=== PATIENT | female | born 1995 | race African-American/Black ===

== ENCOUNTER 2024-04-21 05:30 | Inpatient (IN) | payer BC, OTHER ==
[2024-04-21] MEDS ORDERED: Acetaminophen 500 MG TAB PO PRN (06:28)
[2024-04-21] MEDS ORDERED: Methylergonovine 0.2 MG/ML VIAL IM PRN (06:28)
[2024-04-21] MEDS ORDERED: Tranexamic Acid 1,000 MG/10 ML VIAL IVP PRN (06:28)
[2024-04-21] MEDS ORDERED: HYDROcodone/Acetaminophen 5/325 mg Tablet PO PRN ×2 (06:28)
[2024-04-21] MEDS ORDERED: Carboprost 250 MCG/ML AMP IM PRN (06:28)
[2024-04-21] MEDS ORDERED: Lidocaine 1% (PF) 30 ML VIAL SC PRN (06:28)
[2024-04-21] MEDS ORDERED: fentaNYL 50 mcg/mL 1 mL Vial SLOW IVP PRN (06:28)
[2024-04-21] MEDS ORDERED: Promethazine HCl 25 MG/ML VIAL IM PRN ×2 (06:28→09:30)
[2024-04-21] MEDS ORDERED: hydrALAZINE 20 MG/ML VIAL SLOW IVP PRN ×2 (06:28→16:37)
[2024-04-21] MEDS ORDERED: Diphenoxylate HCl/Atropine Tablet PO PRN ×2 (06:28)
[2024-04-21 06:30] VITALS: BMI 32.5
[2024-04-21 06:43] LABS: Hematocrit 33.9 % (34.9-44.5); Hemoglobin 11.3 g/dL (12.0-15.5); Mean Corpuscular HGB CONC 33.3 g/dL (32.0-36.0); Mean Corpuscular Hemoglobin 29.2 pg (27.0-33.0); Mean Corpuscular Volume 87.6 fL (81.6-98.3); Mean Platelet Volume 11.6 fL (7.4-10.4); Platelet Count 174 10x3/uL (150-450); RBC Distribution Width 15.9 % (11.5-14.5); Red Blood Cell (RBC) Count 3.87 10x6/uL (3.90-5.03); White Blood Cell (WBC) Count 9.7 10x3/uL (3.5-10.5)
[2024-04-21] MEDS: Penicillin G Potassium 5 MILL.UNITS in Sodium Chloride 0.9% 100 ML IVPB SCH (07:08)
[2024-04-21] MEDS: Oxytocin 30 units/NS 500 ML 500 ML IV SCH ×2 (07:08→16:39)
[2024-04-21] MEDS: Lactated Ringer's 1,000 ML IV SCH (07:09)
[2024-04-21 07:15] LABS: Syphilis Antibody Nonreactive (Nonreactive); Syphilis Antibody Index 0.04 S/CO (<1.00 Non-Reactive)
[2024-04-21 07:16] LABS: HBsAg Index 0.15 S/CO (0-0.99); Hep B Surf Ag - L&D Non-Reactive S/CO (NonReactive)
[2024-04-21] MEDS ORDERED: Bupivacaine 0.25% HCL 30 ML VIAL ONE (08:00)
[2024-04-21] MEDS ORDERED: Bupivacaine HCl 0.5%/Epinephrine 1:200,000/PF 30 ml Vial ONE (08:00)
[2024-04-21] MEDS: fentaNYL/Ropivacaine Epidural 100 ML ONE (08:23)
[2024-04-21] MEDS ORDERED: Moisturizing Cream (Eucerin) 113 GM JAR TOP PRN (09:30)
[2024-04-21] MEDS ORDERED: Ondansetron PF 4 MG/2 ML Vial IVP PRN (09:30)
[2024-04-21] MEDS ORDERED: Lactated Ringer's 500 ML IV PRN (09:30)
[2024-04-21] MEDS ORDERED: ePHEDrine Sulfate 50 MG/10 ML VIAL SLOW IVP PRN (09:30)
[2024-04-21] MEDS ORDERED: Acetaminophen 325 MG TAB PO PRN (09:30)
[2024-04-21] MEDS ORDERED: fentaNYL 2 mcg/Ropivacaine 0.2% Epidural 100 ML CADD EPIDURAL SCH (09:30)
[2024-04-21] MEDS ORDERED: Communication Order-Pharmacy FS SCH (09:30)
[2024-04-21] MEDS ORDERED: diphenhydrAMINE 50 MG/ML VIAL IVP PRN (09:30)
[2024-04-21] MEDS ORDERED: Naloxone HCl 0.4 mg/ml Vial IVP PRN ×2 (09:30)
[2024-04-21] MEDS: Penicillin G 2.5 MILL.units 2.5 MILL.UNITS in Premix 1 BAG IVPB SCH (11:05)
[2024-04-21] MEDS: Misoprostol 200 MCG TAB PR PRN (16:09)
[2024-04-21] MEDS: Ondansetron PF 4 MG/2 ML Vial IVP PRN (16:29)
[2024-04-21] MEDS ORDERED: Bisacodyl 10 MG SUPP PR PRN (16:37)
[2024-04-21] MEDS ORDERED: Boostrix 0.5 ML (Tdap) VIAL (>/=7 yrs of age) IM ONE (16:37)
[2024-04-21] MEDS ORDERED: Preparation H Ointment 28 GM TUBE PR PRN (16:37)
[2024-04-21] MEDS ORDERED: Milk Of Magnesia 30 ML UDCUP PO PRN (16:37)
[2024-04-21] MEDS ORDERED: Lanolin Ointment 7 GM TUBE TOP PRN (16:37)
[2024-04-21] MEDS ORDERED: Benzocaine-Menthol 82.5 ML CAN TOP PRN (16:37)
[2024-04-21] MEDS: Ibuprofen 800 MG TAB PO PRN (17:04)
[2024-04-21] MEDS: Lidocaine 2% MPF 10 ML AMP (For Epidural Use) ONE (17:05)
[2024-04-21] MEDS: Misoprostol 200 MCG TAB ONE (17:05)
[2024-04-21] MEDS: Ferrous Sulfate 325 MG TAB PO SCH (17:05)
[2024-04-21] MEDS: Docusate 100 MG CAP PO SCH (21:32)
[2024-04-21] MEDS: traMADol HCl 50 MG TAB PO PRN (21:32)
[2024-04-22] MEDS: Ibuprofen 800 MG TAB PO SCH (01:39)
[2024-04-22] MEDS: Prenatal Vitamin 1 TAB PO SCH (08:04)
[2024-04-22 16:45] VITALS: BP 125/81; TEMP 97.7
== END 2024-04-22 17:45 | disposition home or self-care (01) | DRG 807 ==
LOC: CSHLD 05:39 → CSHPP 19:20
PROVIDERS: ADMIT Obstetrics & Gynecology; ATTEND Obstetrics & Gynecology
PROC: 10E0XZZ Delivery of Products of Conception, External Approach (ICD-10-PCS; principal; 2024-04-21)
PROC: 10D07Z7 Extraction of Products of Conception, Internal Version, Via Natural or Artificial Opening (ICD-10-PCS; 2024-04-21)
PROC: 0UQMXZZ Repair Vulva, External Approach (ICD-10-PCS; 2024-04-21)
DX: O30.043 Twin pregnancy, dichorionic/diamniotic, third trimester (principal); Z37.2 Twins, both liveborn; Z3A.38 38 weeks gestation of pregnancy; Z79.899 Other long term (current) drug therapy; O71.82 Other specified trauma to perineum and vulva; O32.1XX2 Maternal care for breech presentation, fetus 2
CPT/HCPCS: 51702; 85027; 86780; 86850; 86900; 86901; 87340; J0665; J2405; J2540; J2590; J3490; J7120